=== PATIENT | female | born 1995 | race African-American/Black ===

== ENCOUNTER 2018-01-06 15:19 | Emergency (ER) | payer OTHER ==
[~2018-01-06] VITALS: Ht 160 cm; Wt 69.4 kg
[~2018-01-06 15:19] MED LIST: IBUPROFEN 600600 M1 PO; PRENATAL COMPL1 EACH PO; TRINATE TABLET1 TAB PO; TUSSIN DM MAX118 ML PO; VENTOLIN HFA 1818 GM INH; ZOFRAN ODT4 MG PO
[2018-01-06 15:23] VITALS: BP 141/79
== END 2018-01-06 15:58 | disposition home or self-care (01) ==
LOC: ER 15:19
DX: K64.4 Residual hemorrhoidal skin tags (principal); K62.5 Hemorrhage of anus and rectum; Z87.891 Personal history of nicotine dependence